=== PATIENT | female | born 1995 | race Hispanic/Latino ===

== ENCOUNTER 2022-11-05 10:44 | Emergency (ER) | payer SELFPAY ==
[2022-11-05 11:00] VITALS: O2SAT 100
== END 2022-11-05 14:00 | disposition home or self-care (01) ==
LOC: FSED 10:53
DX: O20.9 Hemorrhage in early pregnancy, unspecified (principal); Z3A.10 10 weeks gestation of pregnancy; Z56.0 Unemployment, unspecified; Z59.6 Low income; Z63.9 Problem related to primary support group, unspecified; O09.31 Supervision of pregnancy with insufficient antenatal care, first trimester
CPT/HCPCS: 36415; 76801; 76830; 80053; 81003; 81025; 84702; 85025; 86900; 99282